=== PATIENT | female | born 1980 | race Caucasian/White ===

== ENCOUNTER 2018-10-10 01:05 | Emergency (ER) | payer MEDICAID ==
[~2018-10-10] VITALS: Ht 157.5 cm; Wt 110.3 kg
[~2018-10-10 01:05] MED LIST: ALBU18HF INH; ALPR-475 PO; IBUP-1223 PO
[2018-10-10 01:07] VITALS: BP 120/81
[2018-10-10] MEDS ORDERED: HYDROcodone/APAP 5/325 TABLET PO ONE (01:30)
[2018-10-10] MEDS ORDERED: HYDROcodone/APAP 5/325 TABLET ONE (01:35)
--- NOTE | 2018-10-10 01:38 | NUR ---
PT MEDICATED ORDERED AND AWAITING TEST RESULTS.
== END 2018-10-10 02:17 | disposition home or self-care (01) ==
LOC: ED 01:54
DX: S63.521A Sprain of radiocarpal joint of right wrist, initial encounter (principal); J45.909 Unspecified asthma, uncomplicated; E03.9 Hypothyroidism, unspecified; M19.90 Unspecified osteoarthritis, unspecified site; F17.210 Nicotine dependence, cigarettes, uncomplicated; X50.1XXA Overexertion from prolonged static or awkward postures, initial encounter; Y93.89 Activity, other specified; Y92.009 Unspecified place in unspecified non-institutional (private) residence as the place of occurrence of the external cause; Y99.8 Other external cause status
CPT/HCPCS: 29125; 99283

== ENCOUNTER 2018-11-19 01:30 | Emergency (ER) | payer MEDICAID ==
[~2018-11-19] VITALS: Ht 157.5 cm; Wt 107.7 kg
--- NOTE | 2018-11-19 01:42 | NUR ---
assessment made. PA at bedside.
--- NOTE | 2018-11-19 02:05 | NUR ---
patient to CT scan.
--- NOTE | 2018-11-19 02:24 | NUR ---
back from CT scan. awaiting result.
[2018-11-19 02:36] LABS: BASOPHILS # (AUTO) 0.04 x10^3/uL (0-0.1); BASOPHILS % (AUTO) 1 % (0-1); EOSINOPHILS # (AUTO) 0.14 x10^3/uL (0-0.4); EOSINOPHILS % (AUTO) 2 % (1-7); LYMPHOCYTES # (AUTO) 2.37 x10^3/uL (1-3.4); LYMPHOCYTES % (AUTO) 31 % (22-44); MD NO; MEAN CORPUSCULAR HEMOGLOBIN 28.9 pg (27.0-34.8); MEAN CORPUSCULAR HGB CONC 33.2 g/dL (32.4-35.8); MEAN CORPUSCULAR VOLUME 87.2 fL (80-100); MEAN PLATELET VOLUME 9.7 fL (7.4-10.4); MONOCYTES # (AUTO) 0.74 x10^3/uL (0.2-0.8); MONOCYTES % (AUTO) 10 % (2-9); NEUTROPHILS # (AUTO) 4.33 x10^3/uL (1.8-6.8); NEUTROPHILS % (AUTO) 57 % (42-75); PLATELET COUNT 225 x10^3/uL (130-400); RED BLOOD COUNT 4.99 x10^6/uL (3.82-5.3); RED CELL DISTRIBUTION WIDTH 14.6 % (9.6-15.2)
[2018-11-19 02:47] LABS: ALANINE AMINOTRANSFERASE 35 U/L (12-78); ALBUMIN 3.6 g/dL (3.4-5.0); ANION GAP 7 mmol/L (5-15); CALCIUM 8.8 mg/dL (8.5-10.1); CHLORIDE 111 mmol/L (98-107); CREATININE 0.93 mg/dL (0.55-1.02)
[2018-11-19 02:49] LABS: ALKALINE PHOSPHATASE 110 U/L (45-117); BILIRUBIN,TOTAL 0.3 mg/dL (0.2-1.0); TOTAL PROTEIN 7.2 g/dL (6.4-8.2)
--- NOTE | 2018-11-19 03:01 | NUR ---
all labs and CT scans resulted.
[2018-11-19 03:44] VITALS: BP 132/78
--- NOTE | 2018-11-19 03:44 | NUR ---
re-evaluation done. patient discharged with instruction. verbalized understanding.
== END 2018-11-19 03:47 | disposition home or self-care (01) ==
LOC: ED 02:33
DX: S09.8XXA Other specified injuries of head, initial encounter (principal); K21.9 Gastro-esophageal reflux disease without esophagitis; J45.909 Unspecified asthma, uncomplicated; W17.81XA Fall down embankment (hill), initial encounter; Y93.89 Activity, other specified; Y92.009 Unspecified place in unspecified non-institutional (private) residence as the place of occurrence of the external cause; Y99.8 Other external cause status
CPT/HCPCS: 36415; 70450; 72072; 72125; 80053; 85025; 99284

== ENCOUNTER 2019-06-27 13:28 | Emergency (ER) | payer MEDICAID ==
[~2019-06-27] VITALS: Ht 157.5 cm; Wt 112.0 kg
[~2019-06-27 13:28] MED LIST changes: -ALPR-475 PO; +ALPR0.5T7 PO
--- NOTE | 2019-06-27 13:47 | NUR ---
pt to ed from home w/ bf. dishes fell out of cabinet onto her head. headache, neck pain, R wrist deformity, R hand pain. +radial pulses. c/o decr sensation to R fingers, tingling in R hand. 10/10 pain. A&Ox4 GCS15 no loc [facility]. skin warm and dry cap refill 1 second. awaiting md call blel in reach. ice pack applied.
[2019-06-27] MEDS ORDERED: HYDROcodone/APAP 5/325 TABLET PO ONE (14:30)
--- NOTE | 2019-06-27 14:44 | NUR ---
pt at xr will medicate on return.
[2019-06-27] MEDS ORDERED: HYDROcodone/APAP 5/325 TABLET ONE (14:51)
--- NOTE | 2019-06-27 14:56 | NUR ---
pt back from rad. meds per sep. 04/12 pain head/r wrist. call brewer in reach. NAD.
--- NOTE | 2019-06-27 15:39 | NUR ---
SCANS NEG FOR FX PT UP FOR RECHECK.
[2019-06-27 15:40] VITALS: BP 128/71
== END 2019-06-27 16:14 | disposition home or self-care (01) ==
LOC: ED 13:59
DX: S60.212A Contusion of left wrist, initial encounter (principal); S60.211A Contusion of right wrist, initial encounter; M54.2 Cervicalgia; R51 Headache; F17.200 Nicotine dependence, unspecified, uncomplicated; W18.30XA Fall on same level, unspecified, initial encounter; Y93.89 Activity, other specified; Y92.89 Other specified places as the place of occurrence of the external cause; Y99.8 Other external cause status
CPT/HCPCS: 72020; 72050; 99283